=== PATIENT | female | born 1945 | race American Indian/Alaskan Native ===

== ENCOUNTER 2018-04-19 11:18 | Outpatient (CLI) | payer MEDICARE ==
--- NOTE | 2018-04-19 16:07 | Mammography Report ---
BONE DEXA:04/19/18 11:18:00 CLINICAL: Postmenopausal and history of right breast cancer. COMPARISON: 04/16/16 TECHNIQUE: Two site bone DEXA performed on an Hologic scanner. FINDINGS: The average BMD of the lumbar spine L1-L4 is 0.980g/cm squared with a T-score of -1.5 and a Z-score of +0.9. This compares to 0.969g/cm squared on the last exam and represents a +1.1% change from the previous baseline. The average BMD of the left hip is 0.873g/cm squared with a T-score of -1.0 and a Z-score of +0.2. This compares to 0.894g/cm squared on the last exam and represents a -2.4% change from the previous baseline. The left femoral neck BMD is 0.779g/cm squared with a T score of -1.2 and Z score of +0.3. IMPRESSION: 1. WHO classification: Osteopenia with increased fracture risk based on spine and left femoral neck measurements. 2. A modest improvement in spine BMD and a modest decline in left hip BMD compared to the previous exam.. RECOMMENDATION: Clinical correlation and routine screening. DEFINITIONS: BMD = Bone Mineral Density T-score = BMD related to mean peak bone mass of young adult (mean expressed in Standard Deviation) Z-score = Age matched BMD expressed in SD World Health Organization (WHO) Diagnostic Criteria Normal T-score > -1 SD Osteopenia T-score between -1 and -2.4 SD Osteoporosis T-score -2.5 SD or below NOTE: BMD is not the only risk factor for fracture; also consider factors such as the patient's age, risk of falling, previous osteoporotic fracture, family history of osteoporotic fractures, current smoker, and low body weight. Z-scores are not calculated if >80 years of age.
== END 2018-04-19 11:19 | disposition home or self-care (01) ==
LOC: SPVWC 11:18
PROVIDERS: ATTEND Internal Medicine Hematology & Oncology
DX: M85.88 Other specified disorders of bone density and structure, other site (principal); Z78.0 Asymptomatic menopausal state; Z85.3 Personal history of malignant neoplasm of breast
CPT/HCPCS: 77080

== ENCOUNTER 2022-06-29 11:09 | Outpatient (CLI) | payer MEDICARE ==
--- NOTE | 2022-06-29 14:18 | Mammography Report ---
DEXA BONE DENSITY SCAN INDICATION: OSTEOPOROSIS/OSTEOPENIA, post-menopausal COMPARISON: 05/07/2020 LUMBAR SPINE (L1-L4): Bone mineral density (BMD) is 0.987 g/cm2. T-score is -1.5 (standard deviations of Young Adult mean). LEFT FEMORAL NECK: Bone mineral density (BMD) is 0.641 g/cm2. T-score is -2.2 (standard deviations of Young Adult mean). DENSITOMETRY TRENDS: Lumbar change from prior study: Decrease 6.1%. Femoral neck change from previous study: Decrease 11.0%. IMPRESSION: 1. WHO Classification: Osteopenia. Fracture Risk: Increased. Signer Name: Jake Donis MD Signed: 06/29/2022 2:13 PM Workstation Name: [email or web address]
== END 2022-06-29 11:10 | disposition home or self-care (01) ==
LOC: SPVWC 11:09
PROVIDERS: ATTEND Internal Medicine Hematology & Oncology
DX: M85.88 Other specified disorders of bone density and structure, other site (principal); M81.0 Age-related osteoporosis without current pathological fracture
CPT/HCPCS: 77080